=== PATIENT | female | born 1975 | race Caucasian/White ===

== ENCOUNTER 2019-02-24 08:37 | Emergency (ER) | payer BC ==
[~2019-02-24] VITALS: Ht 162.6 cm; Wt 106.6 kg
--- NOTE | 2019-02-24 08:43 | NUR ---
Pt placed in bed 8
[2019-02-24 08:44] VITALS: BP_SYST 128
--- NOTE | 2019-02-24 08:49 | NUR ---
Patient is awake, alert, and oriented x4. Patient is complaining of nausea and abdominal pain that radiates to her back all night. She states that she thinks she has food poisoning as she has had it before. Patient denies vomiting or diarrhea, last bowel movement was this morning and she states it was normal. Patient presents with epigastric pain 10/10 that radiates to the back with bloating. Hyperactive bowels noted in all 4 quadrants.
--- NOTE | 2019-02-24 09:00 | NUR ---
ER Dr. Hooper at bedside examining patient.
[2019-02-24] MEDS ORDERED: KETOROLAC TROMETHAMINE 60 MG/2 ML VIAL IM ONE (09:15)
[2019-02-24 09:39] LABS: BASOPHILS % (AUTO) 0.4 % (0.0-2.0); EOSINOPHILS # (AUTO) 0.1 K/uL (0.0-0.4); EOSINOPHILS % (AUTO) 0.8 % (0.0-4.0); HEMATOCRIT 41.4 % (36-48); HEMOGLOBIN 13.9 g/dL (12.0-16.0); LYMPHOCYTES % (AUTO) 10.4 % (20.5-51.5); MEAN CORPUSCULAR HEMOGLOBIN 30 pg (27-31); MEAN CORPUSCULAR HGB CONC 34 % (32-36); MEAN CORPUSCULAR VOLUME 89 fL (79.0-98.0); MONOCYTES # (AUTO) 0.4 K/uL (0.0-1.0); MONOCYTES % (AUTO) 4.3 % (1.7-9.3); NEUTROPHILS # (AUTO) 7.9 K/uL (1.8-7.7); NEUTROPHILS % (AUTO) 84.1 % (40.0-70.0); PLATELET COUNT (AUTO) 259 K/uL (130-430); RED BLOOD CELL COUNT(AUTO) 4.64 MIL/uL (4.2-6.2); RED CELL DISTRIBUTION WIDTH 13.4 % (9.0-15.0); WHITE BLOOD COUNT (AUTO) 9.4 K/uL (4.8-10.8)
[2019-02-24 09:54] LABS: CALCIUM 9.5 mg/dL (8.4-11.0); CREATININE 0.5 mg/dL (0.55-1.30); POTASSIUM 4.3 mmol/L (3.5-5.1)
[2019-02-24 09:59] LABS: ALBUMIN 3.6 g/dL (3.4-4.8); TOTAL BILIRUBIN 0.7 mg/dL (0.0-1.0)
--- NOTE | 2019-02-24 10:24 | NUR ---
Patient given written and verbal discharge instructions and verbalizes understanding. ER MD discussed with patient the results and treatment provided. Patient in stable condition. ID arm band removed. Rx of [place] 5-325. given. Patient educated on pain management and to follow up with PMD. Pain Scale 6/10, MD is aware. Opportunity for questions provided and answered. Medication side effect fact sheet provided.
[2019-02-24 10:25] VITALS: BP_SYST 124
== END 2019-02-24 10:25 | disposition home or self-care (01) ==
LOC: SED 08:37
DX: K80.50 Calculus of bile duct without cholangitis or cholecystitis without obstruction (principal); F41.9 Anxiety disorder, unspecified; M54.2 Cervicalgia
CPT/HCPCS: 36415; 76700; 80053; 83690; 85025; 96372; 99284; J1885

== ENCOUNTER 2021-05-12 15:27 | Emergency (ER) | payer BC ==
[~2021-05-12] VITALS: Ht 162.6 cm; Wt 106.6 kg
[2021-05-12 15:40] VITALS: BP_SYST 119
--- NOTE | 2021-05-12 15:40 | NUR ---
PT TRAHENRY AND PLACED IN WAITING ROOM FOR AVAILABLE BED IN MAIN ED
--- NOTE | 2021-05-12 15:45 | NUR ---
PT CAME IN FROM HOME C/O LEF KNEE PAIN. STATES SLIP AND FALL ON WATER ON THE KITCHEN FLOOR, TWISTING LEFT KNEE, UNABLE TO BEAR PREASSURE, ++PAIN. PT IS IN WHEELCHAIR, AAOX4, VSS
--- NOTE | 2021-05-12 16:14 | NUR ---
Patient transported to radiology via WC, accompanied by STAFF.
--- NOTE | 2021-05-12 17:19 | NUR ---
ER DR. MENDEZ EXAMINING PT IN TRIAGE
[2021-05-12] MEDS ORDERED: OXYCODONE/ACETAMINOPHEN 5-325 TABLET PO ONE (17:30)
[2021-05-12] MEDS ORDERED: OXYC-128 PO (17:37)
[2021-05-12 17:53] VITALS: BP_SYST 119
--- NOTE | 2021-05-12 17:56 | NUR ---
Patient given written and verbal discharge instructions and verbalizes understanding. ER MD discussed with patient the results and treatment provided. Patient in stable condition. ID arm band removed. Rx of PERCOCET given. Patient educated on pain management and to follow up with PMD. Pain Scale 0/10. Opportunity for questions provided and answered. Medication side effect fact sheet provided.
== END 2021-05-12 17:56 | disposition home or self-care (01) ==
LOC: SED 15:27
DX: M25.562 Pain in left knee (principal); W01.0XXA Fall on same level from slipping, tripping and stumbling without subsequent striking against object, initial encounter; Y93.89 Activity, other specified; Y92.89 Other specified places as the place of occurrence of the external cause; Y99.8 Other external cause status
CPT/HCPCS: 73564; 99283